=== PATIENT | female | born 1995 | race African-American/Black ===

== ENCOUNTER 2016-11-15 23:03 | Emergency (ER) | payer OTHER ==
[2016-11-15 23:23] VITALS: BP 119/67
--- NOTE | 2016-11-16 02:35 | ER Document Report ---
ED General - General Mode of Arrival: Ambulatory Information source: Patient TRAVEL OUTSIDE OF THE [place] 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 Patient states that it was a burning sensation, but denies any difficulty breathing. Patient denies fever or any pain now. Patient does not take any regular medications, including control. (LINNETTE SELLERS) - Related Data Allergies/Adverse Reactions: No Known Allergies Allergy (Verified 11/15/16 23:26) Past Medical History - General Information source: Patient - Social History Smoking Status: Never Smoker Chew tobacco use (# tins/day): No Frequency of alcohol use: None Drug Abuse: None Family History: None Patient has suicidal ideation: No Patient has homicidal ideation: No Pulmonary Medical History: Reports: Hx Asthma Renal/ Medical History: Denies: Hx Peritoneal Dialysis - Immunizations Immunizations up to date: Yes Hx Diphtheria, Pertussis, Tetanus Vaccination: No <LINNETTE SELLERS - Last Filed: 11/16/16 02:35> Review of Systems - Review of Systems Constitutional: No symptoms reported. denies: Fever EENT: No symptoms reported Cardiovascular: See HPI, Chest pain - burning sensation Respiratory: No symptoms reported. denies: Hurts to breathe, Short of breath Gastrointestinal: No symptoms reported Genitourinary: No symptoms reported Female Genitourinary: No symptoms reported Musculoskeletal: No symptoms reported Skin: No symptoms reported Hematologic/Lymphatic: No symptoms reported Neurological/Psychological: No symptoms reported -: Yes All other systems reviewed and negative <LINNETTE SELLERS - Last Filed: 11/16/16 02:35> Physical Exam - Vital signs Interpretation: Normal - General General appearance: Appears well, Alert - HEENT Head: Normocephalic, Atraumatic Eyes: Normal Pupils: PERRL - Respiratory Respiratory status: No respiratory distress Chest status: Nontender Breath sounds: Normal Chest palpation: Normal - Cardiovascular Rhythm: Regular Heart sounds: Normal auscultation Murmur: No - Abdominal Inspection: Normal Distension: No distension Bowel sounds: Normal Tenderness: Nontender Organomegaly: No organomegaly - Back Back: Normal, Nontender - Extremities General upper extremity: Normal inspection, Nontender, Normal color, Normal ROM , Normal temperature General lower extremity: Normal inspection, Nontender, Normal color, Normal ROM , Normal temperature, Normal weight bearing - Neurological Neuro grossly intact: Yes Cognition: Normal [place] Coma Scale Eye Opening: Spontaneous [place] Coma Scale Verbal: Oriented [place] Coma Scale Motor: Obeys Commands [place] Coma Scale Total: 15 Speech: Normal - Psychological Associated symptoms: Normal affect, Normal mood - Skin Skin Temperature: Warm Skin Moisture: Dry Skin Color: Normal <LINNETTE SELLERS - Last Filed: 11/16/16 02:35> Course <LINNETTE SELLERS - Last Filed: 11/16/16 02:35> - Diagnostic Test Radiology reviewed: Reports reviewed - EKG Interpretation by [place] EKG shows normal: Sinus rhythm Rate: Normal Rhythm: NSR <JATINDER ENRIQUE - Last Filed: 11/16/16 03:36> - Re-evaluation Re-evalutation: 11/16/16 03:35 Patient appears well. EKG and chest x-ray within normal limits. Patient with no risk factor for cardiac disease or PE. No pain at this time. Feels better. Patient will be discharged home is to follow-up with PMD. Understands agrees with plan. Return if any worsening or concerning symptoms. Stable for discharge. (JATINDER ENRIQUE) - Vital Signs Vital signs: Temp Pulse Resp BP Pulse Ox 97.8 F 71 16 119/67 97 11/15/16 23:18 11/15/16 23:18 11/15/16 23:18 11/15/16 23:18 11/15/16 23:18 Discharge <LINNETTE SELLERS - Last Filed: 11/16/16 02:35> <JATINDER ENRIQUE - Last Filed: 11/16/16 03:36> - Discharge Clinical Impression: Atypical chest pain Condition: Stable Disposition: HOME, SELF-CARE Instructions: Chest Pain of Unclear Cause ([facility]) Additional Instructions: Please follow-up with your primary care doctor within the week. Forms: Return to Work Scribe Attestation: 11/16/16 03:36 I personally performed the services described in the documentation, reviewed and edited the documentation which was dictated to the scribe in my presence, and it accurately records my words and actions. (JATINDER ENRIQUE) Scribe Documentation - Scribe Written by Scribe:: Linnette Sellers 11/16/2016 0230 acting as scribe for :: Iva <LINNETTE SELLERS - Last Filed: 11/16/16 02:35>
--- NOTE | 2016-11-16 10:21 | EKG REPORT ---
SEVERITY:- NORMAL ECG - SINUS RHYTHM : Confirmed by: Kelby Renteria 16-Nov-2016 10:20:40
== END 2016-11-16 04:27 | disposition home or self-care (01) ==
LOC: ER 23:03
DX: R07.89 Other chest pain (principal)
CPT/HCPCS: 71020; 93005; 93010; 99285